=== PATIENT | female | born 1980 | race African-American/Black ===

== ENCOUNTER 2020-05-22 14:03 | Emergency (ER) | payer OTHER ==
[2020-05-22 14:30] VITALS: BP 129/82; PULSE 88; TEMP 99.5; BMI 29.5
== END 2020-05-22 15:26 | disposition home or self-care (01) ==
LOC: JER 14:03
DX: Z03.818 Encounter for observation for suspected exposure to other biological agents ruled out (principal)
CPT/HCPCS: 71046-TC-FY; 99284-25; C9803; U0003

== ENCOUNTER 2022-09-29 12:14 | Emergency (ER) | payer OTHER ==
[2022-09-29 12:26] VITALS: BP 126/64; PULSE 90; RESP 19; TEMP 98.8; BMI 30.9
== END 2022-09-29 14:24 | disposition home or self-care (01) ==
LOC: JERFT 12:14
DX: O99.511 Diseases of the respiratory system complicating pregnancy, first trimester (principal); R07.0 Pain in throat; R09.89 Other specified symptoms and signs involving the circulatory and respiratory systems; R05.9 Cough, unspecified; R09.3 Abnormal sputum; R09.81 Nasal congestion; J06.9 Acute upper respiratory infection, unspecified; B97.89 Other viral agents as the cause of diseases classified elsewhere; Z3A.13 13 weeks gestation of pregnancy; Z20.822 Contact with and (suspected) exposure to COVID-19
CPT/HCPCS: 0241U-QW; 87651; 99283-25

== ENCOUNTER 2023-03-12 12:40 | Inpatient (IN) | payer OTHER ==
[2023-03-12] MEDS ORDERED: LABETALOL HCL 20 MG/4 ML VIAL ONE ×2 (13:57→14:22)
[2023-03-12] MEDS ORDERED: LABETALOL HCL 5 MG/1 ML (100MG/20 ML VIAL) IVPUSH ONE ×2 (14:20→14:35)
[2023-03-12 14:54] LABS: RETICULOCYTES 1.75 % (0.5-1.5)
[2023-03-12] MEDS ORDERED: SODIUM CHLORIDE 0.9% P/F 10 ML VIAL IJ ONE (16:06)
[2023-03-12] MEDS ORDERED: METOCLOPRAMIDE HCL INJECTION 10 MG/2 ML VIAL ONE (16:06)
[2023-03-12] MEDS ORDERED: ONDANSETRON 4 MG/2 ML VIAL ONE ×2 (16:06→17:41)
[2023-03-12] MEDS ORDERED: ePHEDrine SULFATE 50 MG/1 ML AMPULE ONE (16:06)
[2023-03-12] MEDS ORDERED: PHENYLEPHRINE HCL 10 MG/1 ML SINGLE DOSE VIAL ONE (16:06)
[2023-03-12] MEDS ORDERED: ceFAZolin SODIUM 1 GM VIAL ONE ×2 (16:06→17:52)
[2023-03-12 16:12] VITALS: BMI 33.5
[2023-03-12] MEDS ORDERED: CITRIC ACID/SODIUM CITRATE 30 ML UNIT-DOSE CUP PO ONE (16:29)
[2023-03-12] MEDS ORDERED: MAGNESIUM 4GM/H20 - 4 GM/100 ML IVPB IVPB SCH (16:45)
[2023-03-12] MEDS ORDERED: MAGNESIUM 4GM/H20 - 4 GM/100 ML IVPB IVPB ONE (16:54)
[2023-03-12] MEDS: MAGNESIUM SULFATE 20GM/500ML - 20 GM/500 ML INFUS.BAG IVPB SCH ×2 (17:00→20:15)
[2023-03-12] MEDS: ELECTROLYTE-148 SOLN 1,000 ML IV SCH (17:03)
[2023-03-12] MEDS ORDERED: CITRIC ACID/SODIUM CITRATE 30 ML UNIT-DOSE CUP ONE (17:05)
[2023-03-12] MEDS ORDERED: LIGASURE IMPACT TP ONE (17:20)
[2023-03-12] MEDS ORDERED: OXYTOCIN 10 UNITS/ML VIAL ONE (17:41)
[2023-03-12] MEDS ORDERED: KETOROLAC TROMETHAMINE 30 MG/1 ML VIAL ONE (17:41)
[2023-03-12] MEDS ORDERED: morphine SULFATE/PF 1 MG/2 ML (2cc Syringe - QUVA) ONE (17:41)
[2023-03-12] MEDS ORDERED: FENTANYL CITRATE/PF 50 MCG/ML VIAL ONE (17:42)
[2023-03-12 19:50] LABS: CORD BASE EXCESS -2.2 mmol/L (0-2); CORD HCO3 25.1 mmHg (20-29); CORD PCO2 52.6 mmHg (30-78); CORD pH 7.297 (7.14-7.44)
[2023-03-12 19:55] LABS: CORD PCO2 55.7 mmHg (30-78); CORD pH 7.253 (7.14-7.44)
[2023-03-12] MEDS ORDERED: ACETAMINOPHEN 325 MG TABLET (FP) PO PRN (20:08)
[2023-03-12] MEDS ORDERED: METHYLERGONOVINE MALEATE 0.2 MG/1 ML AMP IM PRN (20:08)
[2023-03-12] MEDS ORDERED: MAGNESIUM SULFATE 20GM/500ML - 20 GM/500 ML INFUS.BAG ONE (20:12)
[2023-03-12] MEDS ORDERED: ELECTROLYTE-148 SOLN 1,000 ML IV SCH (20:15)
[2023-03-12] MEDS: OXYTOCIN 20 UNITS in 0.9% NS 20 UNIT/1,000 ML INFUS.BAG IV SCH (20:15)
[2023-03-12] MEDS ORDERED: oxyCODONE HCL 5 MG TABLET ONE (21:17)
[2023-03-12] MEDS: oxyCODONE HCL 5 MG TABLET PO PRN (21:20)
[2023-03-12] MEDS ORDERED: LABETALOL HCL 200 MG TABLET (FP) ONE (22:04)
[2023-03-12] MEDS: LABETALOL HCL 200 MG TABLET (FP) PO SCH (22:05)
[2023-03-13] MEDS ORDERED: IBUPROFEN 600 MG TABLET (FP) PO ONE ×3 (06:06→18:06)
[2023-03-13] MEDS: IBUPROFEN 600 MG TABLET (FP) PO PRN ×4 (06:08→21:28)
[2023-03-13] MEDS: LABETALOL HCL 200 MG TABLET (FP) PO SCH ×3 (06:14→21:59)
[2023-03-13] MEDS ORDERED: OXYTOCIN 20 UNITS in 0.9% NS 20 UNIT/1,000 ML INFUS.BAG IV ONE (06:17)
[2023-03-13] MEDS: OXYTOCIN 20 UNITS in 0.9% NS 20 UNIT/1,000 ML INFUS.BAG IV SCH ×2 (06:18→21:55)
[2023-03-13] MEDS ORDERED: MAGNESIUM SULFATE 20GM/500ML - 20 GM/500 ML INFUS.BAG ONE (06:22)
[2023-03-13] MEDS: MAGNESIUM SULFATE 20GM/500ML - 20 GM/500 ML INFUS.BAG IVPB SCH ×2 (06:23→18:18)
[2023-03-13] MEDS: SIMETHICONE 80 MG TAB.CHEW (FP) PO PRN ×2 (08:23→21:28)
[2023-03-13 08:54] LABS: BASO % 0.1 % (0-2.0); EOS % 0.3 % (0-4.5); HEMATOCRIT 31.3 % (32.4-45.2); HEMOGLOBIN 10.4 GM/dL (10.7-15.3); LYMPH % 13.4 % (8-40); MCHC 33.2 g/dl (32.0-36.0); MEAN CELL VOLUME 93.5 fl (80-96); MEAN PLT VOLUME 9.1 fl (7.5-11.1); NEUT % 78.2 % (42.8-82.8); PLATELET COUNT 189 10^3/uL (134-434); RBC 3.35 M/mm3 (3.60-5.2); WHITE BLOOD COUNT 12.7 K/mm3 (4.0-10.0)
[2023-03-13] MEDS: ELECTROLYTE-148 SOLN 1,000 ML IV SCH (18:18)
[2023-03-13 19:02] VITALS: RESP 18
[2023-03-13] MEDS ORDERED: BISACODYL 10 MG SUPP.RECT RC PRN (20:09)
[2023-03-13] MEDS: oxyCODONE HCL 5 MG TABLET PO PRN (23:28)
[2023-03-14] MEDS: LABETALOL HCL 200 MG TABLET (FP) PO SCH ×3 (06:12→22:01)
[2023-03-14] MEDS: IBUPROFEN 600 MG TABLET (FP) PO PRN ×3 (06:14→23:23)
[2023-03-14] MEDS: oxyCODONE HCL 5 MG TABLET PO PRN ×3 (09:14→22:11)
[2023-03-14] MEDS: SIMETHICONE 80 MG TAB.CHEW (FP) PO PRN ×3 (09:15→22:12)
[2023-03-15] MEDS: LABETALOL HCL 200 MG TABLET (FP) PO SCH ×2 (06:00→14:13)
[2023-03-15] MEDS: SIMETHICONE 80 MG TAB.CHEW (FP) PO PRN ×3 (06:00→17:17)
[2023-03-15] MEDS: oxyCODONE HCL 5 MG TABLET PO PRN ×2 (06:01→10:08)
[2023-03-15 08:13] LABS: BASO % 0.1 % (0-2.0); EOS % 1.8 % (0-4.5); HEMATOCRIT 27.6 % (32.4-45.2); HEMOGLOBIN 9.6 GM/dL (10.7-15.3); LYMPH % 10.4 % (8-40); MCH 31.9 pg (25.7-33.7); MCHC 34.8 g/dl (32.0-36.0); MEAN CELL VOLUME 91.6 fl (80-96); MEAN PLT VOLUME 9.2 fl (7.5-11.1); MONO % 7.7 % (3.8-10.2); PLATELET COUNT 189 10^3/uL (134-434); RBC 3.01 M/mm3 (3.60-5.2); RDW 14.3 % (11.6-15.6); WHITE BLOOD COUNT 11.2 K/mm3 (4.0-10.0)
[2023-03-15] MEDS: IBUPROFEN 600 MG TABLET (FP) PO PRN (17:13)
[2023-03-15 18:15] VITALS: BP 150/81; PULSE 78; TEMP 98.5
== END 2023-03-15 20:15 | disposition home or self-care (01) | DRG 540 ==
LOC: JDEL 12:40 → JLDR 14:00 → J3W 03-13 21:15
PROVIDERS: ADMIT Obstetrics & Gynecology; ATTEND Obstetrics & Gynecology
PROC: 10D00Z1 Extraction of Products of Conception, Low, Open Approach (ICD-10-PCS; principal; 2023-03-12)
PROC: 0UB70ZZ Excision of Bilateral Fallopian Tubes, Open Approach (ICD-10-PCS; 2023-03-12)
DX: O14.14 Severe pre-eclampsia complicating childbirth (principal); O10.92 Unspecified pre-existing hypertension complicating childbirth; Z3A.37 37 weeks gestation of pregnancy; O34.211 Maternal care for low transverse scar from previous cesarean delivery; N85.8 Other specified noninflammatory disorders of uterus; Z30.2 Encounter for sterilization; Z37.0 Single live birth
CPT/HCPCS: 36415; 36600; 80053; 82570; 82803; 82977; 83010; 83735; 84156; 84450; 84460; 84550; 85025; 85027; 85032; 85045; 85610; 85730; 86780; 86850; 86900; 86901; 87389; 88305-TC; 88307-TC

== ENCOUNTER 2023-03-19 19:34 | Inpatient (IN) | payer OTHER ==
[2023-03-19 19:40] VITALS: BMI 30.4
[2023-03-19] MEDS ORDERED: METOCLOPRAMIDE HCL INJECTION 10 MG/2 ML VIAL IVPB ONE (20:24)
[2023-03-19] MEDS ORDERED: SODIUM CHLORIDE 0.9% 500 ML INFUS.BAG IV ONE (20:24)
[2023-03-19] MEDS ORDERED: ACETAMINOPHEN 1000 MG/100 ML BAG IVPB ONE (20:24)
[2023-03-19] MEDS ORDERED: ACETAMINOPHEN INJECTION 100 ML IVPB ONE (20:52)
[2023-03-19] MEDS ORDERED: METOCLOPRAMIDE HCL INJECTION 10 MG/2 ML VIAL ONE (20:52)
[2023-03-19 21:06] LABS: BASO % 0.3 % (0-2.0); EOS % 4.5 % (0-4.5); HEMATOCRIT 30.8 % (32.4-45.2); HEMOGLOBIN 10.4 GM/dL (10.7-15.3); MCH 30.8 pg (25.7-33.7); MCHC 33.8 g/dl (32.0-36.0); MEAN CELL VOLUME 91.3 fl (80-96); MEAN PLT VOLUME 8.4 fl (7.5-11.1); MONO % 9.9 % (3.8-10.2); NEUT % 55.3 % (42.8-82.8); PLATELET COUNT 287 10^3/uL (134-434); RBC 3.37 M/mm3 (3.60-5.2); RDW 14.1 % (11.6-15.6); WHITE BLOOD COUNT 9.3 K/mm3 (4.0-10.0)
[2023-03-19 21:10] LABS: EPI CELLS 3 /uL (0-25.1); HYALINE CASTS 0 /uL (0-3.1); URINE APPEARANCE CLEAR; URINE BACTERIA 7 /uL (0-1359); URINE BILIRUBIN NEGATIVE (NEGATIVE); URINE COLOR YELLOW; URINE GLUCOSE (UA) NEGATIVE (NEGATIVE); URINE KETONE NEGATIVE (NEGATIVE); URINE LEUK ESTERASE TRACE (NEGATIVE); URINE NITRITE NEGATIVE (NEGATIVE); URINE PROTEIN NEGATIVE (NEGATIVE); URINE RBC 5 /uL (0-23.9); URINE WBC 9 /uL (0-25.8)
[2023-03-19 21:52] LABS: CALCIUM 9.2 mg/dL (8.5-10.1)
[2023-03-19 21:53] LABS: ALBUMIN 2.8 g/dl (3.4-5.0); BLOOD UREA NITROGEN 13.2 mg/dL (7-18)
[2023-03-19 21:56] LABS: CREATININE 0.7 mg/dL (0.55-1.3)
[2023-03-19 21:57] LABS: BILIRUBIN,TOTAL 0.6 mg/dL (0.2-1)
[2023-03-19] MEDS ORDERED: hydrALAZINE HCL 20 MG/ML VIAL IVPUSH PRN (23:28)
[2023-03-19] MEDS ORDERED: LABETALOL HCL 5 MG/1 ML (100MG/20 ML VIAL) IVPUSH PRN ×3 (23:28)
[2023-03-19] MEDS ORDERED: MAGNESIUM 4GM/H20 - 4 GM/100 ML IVPB IVPB ONE (23:45)
[2023-03-20] MEDS ORDERED: LABETALOL HCL 200 MG TABLET (FP) ONE ×4 (00:09→22:15)
[2023-03-20] MEDS: LABETALOL HCL 200 MG TABLET (FP) PO SCH ×4 (00:12→22:00)
[2023-03-20] MEDS ORDERED: MAGNESIUM 4GM/H20 - 4 GM/100 ML IVPB IVPB ONE (00:49)
[2023-03-20] MEDS: ELECTROLYTE-148 SOLN 1,000 ML IV SCH ×2 (01:05→16:11)
[2023-03-20] MEDS ORDERED: MAGNESIUM SULFATE 20GM/500ML - 20 GM/500 ML INFUS.BAG ONE ×2 (01:36→12:40)
[2023-03-20] MEDS: MAGNESIUM SULFATE 20GM/500ML - 20 GM/500 ML INFUS.BAG IVPB SCH ×2 (01:40→12:42)
[2023-03-21] MEDS ORDERED: MAGNESIUM SULFATE 20GM/500ML - 20 GM/500 ML INFUS.BAG ONE (00:47)
[2023-03-21] MEDS: MAGNESIUM SULFATE 20GM/500ML - 20 GM/500 ML INFUS.BAG IVPB SCH (01:00)
[2023-03-21] MEDS: LABETALOL HCL 200 MG TABLET (FP) PO SCH (06:00)
[2023-03-21 06:11] VITALS: TEMP 98.6
[2023-03-21] MEDS ORDERED: LABETALOL HCL 200 MG TABLET (FP) ONE (06:15)
[2023-03-21] MEDS ORDERED: ACETAMINOPHEN 325 MG TABLET (FP) ONE (06:43)
[2023-03-21] MEDS ORDERED: ACETAMINOPHEN 325 MG TABLET (FP) PO ONE (06:45)
[2023-03-21 07:30] VITALS: BP 141/82; PULSE 66; RESP 18
== END 2023-03-21 10:17 | disposition home or self-care (01) | DRG 561 ==
LOC: JER 19:34 → JERBED 23:17 → JLDR 03-20 00:30
PROVIDERS: ADMIT Obstetrics & Gynecology; ATTEND Obstetrics & Gynecology
DX: O90.89 Other complications of the puerperium, not elsewhere classified (principal); R51.9 Headache, unspecified; O14.95 Unspecified pre-eclampsia, complicating the puerperium
CPT/HCPCS: 36415; 80053; 81003; 82570; 84156; 84300; 85025; 93005; 93010; 99285-25